=== PATIENT | female | born 1995 | race Caucasian/White ===

== ENCOUNTER 2016-12-05 16:24 | Emergency (ER) | payer OTHER ==
[2016-12-05 17:18] LABS: URINE BILIRUBIN NEGATIVE (NEGATIVE); URINE BLOOD 4+ (NEGATIVE); URINE GLUCOSE (UA) NEGATIVE (NEGATIVE); URINE LEUKOCYTE ESTERASE NEGATIVE (NEGATIVE); URINE NITRITE NEGATIVE (NEGATIVE); URINE PROTEIN 1+ (NEGATIVE); URINE UROBILINOGEN 1 mg/dL (0-1 mg/dl)
[2016-12-05] MEDS ORDERED: ONDANSETRON 4 MG/2ML 2 ML VIAL ONE (17:19)
[2016-12-05] MEDS ORDERED: SODIUM CHLORIDE 0.9% 1,000 ML ONE (17:19)
[2016-12-05] MEDS ORDERED: HYDROMORPHONE HCL 1 MG/ML SYRINGE ONE (17:19)
[2016-12-05 17:26] LABS: URINE APPEARANCE HAZY; URINE COLOR AMBER
[2016-12-05 17:27] LABS: HCG,QUALITATIVE URINE NEGATIVE
[2016-12-05 17:31] LABS: ABSOLUTE NEUTROPHIL COUNT 15.1 K/mm3 (1.8-7.7); BASO # 0.1 K/mm3 (0.0-0.2); BASO % 0.3 % (0.2-1.0); EOS # 0.1 (0.0-0.5); EOS % 0.3 % (0.9-2.9); HEMOGLOBIN 12.7 gm/l (12.0-16.0); IMM NEUT # 0.1 K/mm3 (0-0.2); IMM NEUT% 0.3 % (0-1); LYMPH # 1.6 (1.0-4.8); LYMPH % 9.2 % (15-45); MEAN CELL VOLUME 80.9 fl (81.0-99.0); MEAN CORPUSCULAR HEMOGLOBIN 26.3 pg (27.0-31.0); MEAN CORPUSCULAR HGB CONC 32.6 g/dl (33.0-37.0); MEAN PLATELET VOLUME 10.4 fl (7.4-10.4); MONO # 0.6 (0.0-0.8); MONO % 3.7 % (4-12); NEUT % 86.2 % (43-75); PLATELET COUNT 315 K/mm3 (130-400); RED CELL DISTRIBUTION WIDTH 13.8 % (11.5-14.5)
[2016-12-05 17:37] LABS: URINE BACTERIA 1+; URINE RBC >100 /hpf
[2016-12-05 17:45] LABS: ALB/GLOB RATIO 1.2 (>1.0); ALBUMIN 4.2 gm/dL (3.5-5.7); CALCIUM 9.8 mg/dL (8.6-10.3)
[2016-12-05] MEDS ORDERED: KETOROLAC TROMETHAMINE 30 MG/ML 1 ML VIAL ONE (18:12)
--- NOTE | 2016-12-05 18:51 | CT ---
[facility]vis COMPARISON:None CLINICAL HISTORY:Left-sided abdominal pain PROCEDURE: Helical CT using multidetector technique was applied to the abdomen and pelvis. No contrast was given per ordering physician. Sagittal, axial and coronal images are reviewed. Findings CT abdomen (noncontrast): Lung bases are clear. Heart is not enlarged. There is no pericardial effusion. Noncontrast images of the liver, gallbladder, pancreas, spleen, adrenal glands, right kidney, aorta, IVC and portal vein are within normal limits. The left kidney is lobulated which could represent persistent lobulation or prior scarring. Duplicated collecting system is identified. The upper pole calyces on the left are decompressed and there is mild hydronephrosis of the lower pole calyces. 2 ureters are identified and in the lower pole ureter, proximally, there is a 4.4 mm calculus. Right upper pole ureter is normal. The shoulders are thought to combine in the pelvis. There is no free air, free fluid or abscess. Several subcentimeter reactive lymph nodes are identified. Bilateral pars defects are identified at L5 allowing a slight anterolisthesis of L5 on S1. Small fat filled umbilical hernia is noted. CT pelvis (noncontrast): Bladder is within normal limits. Uterus is normal size and contains an IUD. Ovaries are normal and symmetric. Small bowel, colon and appendix are normal. There is no free air, free fluid or suspicious adenopathy. IMPRESSION: 1. 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 In the proximal left lower pole ureter, there is a 4.4 mm calculus causing mild hydronephrosis of the inferior pole of left kidney. 2. Normal appendix 3. No bowel obstruction 4. 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
[2016-12-05] MEDS ORDERED: TAMSULOSIN HCL 0.4 MG CAPSULE.DR ONE (20:51)
[2016-12-05] MEDS ORDERED: OXYCODONE/ACETAMINOPHEN 5/325 MG TABLET ONE (20:51)
== END 2016-12-05 20:57 | disposition home or self-care (01) ==
LOC: ED 16:24
DX: N23 Unspecified renal colic (principal); R11.0 Nausea
CPT/HCPCS: 83690; 81025; 85025; 87086; 80053; 81001; 74176; 96375 ×2; 99284; 96374; 99283; J1170; A9270; J1885; J2405; J7030